=== PATIENT | female | born 1985 ===

== ENCOUNTER 2024-04-27 13:58 | Outpatient (REF) | payer BC, SELFPAY ==
--- NOTE | 2024-04-27 13:45 | PAPFT_PTH ---
PATIENT: NIKOLE TODD LOC: [facility] U#:[id number] AGE/SX: 38/F ROOM: RE04/27/[address]: Lenore Carlson : 1985 BED: DIS: 04/27/2024 SPEC #: [id number] RECD: 04/27/24 15:24 STATUS: CRYSTAL RECaryn #: [id number] RADHA: 04/27/24 13:[address]: Lenore Carlson DEPT: [facility] Cytology RECD BY: Ceci Davis ENTERED: 04/27/24 15:24 SP TYPE: PAPFT OTHR DR: Unknown,Unknown Tissues: 1 - CX/ENDOCX FOR PAP SMEARS Procedures: PAP THIN PREP/[facility] Screening HPV DNA PROBE Comments: [id number] (HPV 16 & 18/45)
[2024-04-30 12:24] LABS: Chlamydia Result Negative (Negative); GC Result Negative (Negative)
== END 2024-04-27 13:59 | disposition home or self-care (01) ==
LOC: LBN 13:58
PROVIDERS: Visit Provider Obstetrics & Gynecology Gynecology
DX: Z11.3 Encounter for screening for infections with a predominantly sexual mode of transmission (principal)
CPT/HCPCS: 87491; 87591; 88142; 87624